=== PATIENT | female | born 1995 | race Asian ===

== ENCOUNTER 2019-02-25 04:44 | Emergency (ER) | payer OTHER ==
[~2019-02-25] VITALS: Ht 152.4 cm; Wt 49.1 kg
[2019-02-25] MEDS ORDERED: ACYC5CRE2 TP (04:55)
[2019-02-25] MEDS ORDERED: AMOX TR/POT CLAV 875 MG/125 MG TABLET PO ONE (05:15)
[2019-02-25] MEDS ORDERED: ACETAMINOPHEN 500 MG TABLET PO ONE (05:15)
[2019-02-25] MEDS ORDERED: IBUPROFEN 600 MG TABLET PO ONE (05:15)
[2019-02-25 05:18] VITALS: BP 128/89
== END 2019-02-25 05:20 | disposition home or self-care (01) ==
LOC: EMS 04:48
DX: K08.89 Other specified disorders of teeth and supporting structures (principal); Z91.041 Radiographic dye allergy status

== ENCOUNTER 2019-07-17 11:54 | Emergency (ER) | payer OTHER ==
[~2019-07-17] VITALS: Ht 153 cm; Wt 47.7 kg
[~2019-07-17 11:54] MED LIST: ACYC5CRE2 TP
[2019-07-17] MEDS ORDERED: SODIUM CHLORIDE 0.9% 1,000 ML IV ONE (12:45)
[2019-07-17 13:05] LABS: BASOPHILS % (AUTO) 0.4 % (0.0-2.0); EOSINOPHILS % (AUTO) 0.5 % (1.0-6.0); HEMATOCRIT 42.3 % (36-46); HEMOGLOBIN 14.3 g/dL (12.0-16.0); LYMPHOCYTES # (AUTO) 0.4 K/uL (1.0-4.8); LYMPHOCYTES % (AUTO) 4.9 % (22.0-44.0); MEAN CORPUSCULAR HEMOGLOBIN 27.9 pg (26.0-34.0); MEAN CORPUSCULAR HGB CONC 33.8 G/dL (31.0-37.0); MEAN CORPUSCULAR VOLUME 82 fL (80-100); MONOCYTES # (AUTO) 0.5 K/uL (0.1-1.0); MONOCYTES % (AUTO) 7.1 % (2.0-9.0); NEUTROPHILS # (AUTO) 6.4 K/uL (1.8-7.7); NEUTROPHILS % (AUTO) 87.1 % (40.0-70.0); PLATELET COUNT (AUTO) 188 K/uL (150-450); RED BLOOD CELL COUNT(AUTO) 5.13 MIL/uL (4.00-5.20); RED CELL DISTRIBUTION WIDTH 13.3 % (11.5-14.5)
[2019-07-17 13:22] LABS: ANION GAP 11 mmol/L (8-16); CALCIUM, TOTAL 8.8 mg/dL (8.8-10.5); CARBON DIOXIDE 24 mmol/L (22-29); CHLORIDE 100 mmol/L (98-107); CREATININE 0.57 mg/dL (0.60-1.30); GLOMERULAR FILTR. RATE CALC > 60 mL/min (>60); GLUCOSE,RANDOM 90 mg/dL (70-110); POTASSIUM 3.6 mmol/L (3.5-5.1); SODIUM SERUM 135 mmol/L (136-145); UREA NITROGEN, BLOOD 8 mg/dL (7-18)
[2019-07-17 13:29] LABS: ALANINE AMINOTRANSFERASE 64 U/L (12-78); ALKALINE PHOSPHATASE 90 U/L (46-116); ASPARTATE AMINOTRANSFERASE 44 U/L (15-37); BILIRUBIN,TOTAL 0.7 mg/dL (0.1-1.0); HCG,QUANTITATIVE < 1 mIU/mL (0-6); TOTAL PROTEIN, SERUM 7.9 g/dL (6.4-8.2)
[2019-07-17 15:25] LABS: APPEARANCE,URINE CLEAR (CLEAR); BILIRUBIN,URINE NEGATIVE (NEGATIVE); GLUCOSE, URINE (UA) NEGATIVE (NEGATIVE); KETONES,URINE NEGATIVE (NEGATIVE); LEUKOCYTE ESTERASE ,URINE NEGATIVE (NEGATIVE); NITRATE,URINE NEGATIVE (NEGATIVE); OCCULT BLOOD,URINE NEGATIVE (NEGATIVE); PROTEIN,URINE NEGATIVE (NEGATIVE)
[2019-07-17 15:35] VITALS: BP 108/77
[2019-07-17 15:36] LABS: BACTERIA,URINE None Seen /HPF (None Seen); RBC,URINE None Seen /HPF (0-2); SQUAMOUS EPITHELIAL CELL,UR Moderate /LPF (None Seen); WBC,URINE None Seen /HPF (0-5)
== END 2019-07-17 15:59 | disposition home or self-care (01) ==
LOC: EMS 11:55
DX: R68.83 Chills (without fever) (principal); R03.0 Elevated blood-pressure reading, without diagnosis of hypertension
CPT/HCPCS: 36415; 80053; 81001; 84702; 85025; 99285; J7030

== ENCOUNTER → 2019-08-02 | Outpatient (CLI) | payer OTHER | END | disposition home or self-care (01) | LOC: PUC 16:23 | DX: N39.0 Urinary tract infection, site not specified (principal) | CPT/HCPCS: 87086; 87491; 87591 ==

== ENCOUNTER 2021-07-24 21:06 | Inpatient (IN) | payer MEDICAID, OTHER ==
[~2021-07-24] VITALS: Ht 152.4 cm; Wt 53.1 kg
[2021-07-24 22:02] LABS: BASOPHILS % (AUTO) 0.9 % (0.0-2.0); EOSINOPHILS % (AUTO) 6.3 % (1.0-6.0); LYMPHOCYTES # (AUTO) 1.9 K/uL (1.0-4.8); LYMPHOCYTES % (AUTO) 39.4 % (22.0-44.0); MEAN CORPUSCULAR HEMOGLOBIN 28.6 pg (26.0-34.0); MEAN CORPUSCULAR VOLUME 82 fL (80-100); MONOCYTES # (AUTO) 0.5 K/uL (0.1-1.0); MONOCYTES % (AUTO) 9.5 % (2.0-9.0); NEUTROPHILS # (AUTO) 2.1 K/uL (1.8-7.7); NEUTROPHILS % (AUTO) 43.9 % (40.0-70.0); PLATELET COUNT (AUTO) 311 K/uL (150-450); RED BLOOD CELL COUNT(AUTO) 4.89 MIL/uL (4.00-5.20); RED CELL DISTRIBUTION WIDTH 13.3 % (11.5-14.5)
[2021-07-24 22:10] LABS: ANION GAP 10 mmol/L (8-16); CARBON DIOXIDE 29 mmol/L (22-29); CHLORIDE 102 mmol/L (98-107); CREATININE 0.74 mg/dL (0.60-1.30); GLUCOSE,RANDOM 98 mg/dL (70-110); POTASSIUM 3.8 mmol/L (3.5-5.1); SODIUM SERUM 141 mmol/L (136-145); UREA NITROGEN, BLOOD 13 mg/dL (7-18)
[2021-07-24 22:11] LABS: CALCIUM, TOTAL 9.5 mg/dL (8.8-10.5); GLOMERULAR FILTR. RATE CALC > 60 mL/min (>60)
[2021-07-24 22:17] LABS: ALANINE AMINOTRANSFERASE 86 U/L (12-78); ALBUMIN 4.1 g/dL (3.4-5.0); ALKALINE PHOSPHATASE 71 U/L (46-116); ASPARTATE AMINOTRANSFERASE 37 U/L (15-37); BILIRUBIN,TOTAL 0.2 mg/dL (0.1-1.0); TOTAL PROTEIN, SERUM 7.9 g/dL (6.4-8.2)
[2021-07-24 22:48] LABS: ACETAMINOPHEN < 2 mcg/mL (10-30)
[2021-07-24 22:51] LABS: SALICYLATE < 2.8 mg/dL (2.8-20.0)
[2021-07-24 23:01] LABS: AMPHET/METH SCREEN,URINE NEGATIVE (NEGATIVE); BARBITURATE SCREEN, URINE NEGATIVE (NEGATIVE); BENZODIAZEPINES SCREEN,URINE NEGATIVE (NEGATIVE); CANNABINOID SCREEN,URINE NEGATIVE (NEGATIVE); COCAINE SCREEN,URINE NEGATIVE (NEGATIVE); METHADONE SCREEN, URINE NEGATIVE (NEGATIVE); OPIATE SCREEN,URINE NEGATIVE (NEGATIVE); PHENCYCLIDINE SCREEN,URINE NEGATIVE (NEGATIVE)
[2021-07-25] MEDS ORDERED: LORazepam 2 MG TABLET PO PRN (01:30)
[2021-07-25] MEDS ORDERED: HALOPERIDOL 5 MG TABLET PO PRN (01:30)
[2021-07-25] MEDS ORDERED: ZOLPIDEM TARTRATE 10 MG TABLET PO PRN (01:30)
[2021-07-25 02:17] LABS: COVID AG,FIA SOURCE NASAL SWAB
[2021-07-25 14:04] VITALS: BP 117/80
[2021-07-25 16:10] VITALS: BP 99/70
[2021-07-26 00:39] VITALS: BP 117/68
[2021-07-26 08:05] VITALS: BP 125/81
[2021-07-26 08:17] LABS: FREE T4 (FREE THYROXINE) 0.98 ng/dL (0.76-1.46); THYROID STIMULATING HORMONE 0.62 uIU/mL (0.36-3.74)
[2021-07-26] MEDS ORDERED: GuaiFENesin/D-METHORPHAN [SUGAR-FREE] 200-20MG/10 ML SYRUP UDCUP PO PRN (12:45)
[2021-07-26] MEDS ORDERED: ALBUTEROL SULFATE HFA 90 MCG/PUFF 8 GM INHALER IH PRN (12:45)
[2021-07-26] MEDS ORDERED: IBUPROFEN 400 MG TABLET PO PRN (12:45)
[2021-07-26] MEDS ORDERED: DOCUSATE SODIUM 100 MG CAPSULE PO PRN (12:45)
[2021-07-26] MEDS ORDERED: MAG HYDROX/AL HYDROX/SIMETH ES 30 ML SUSPENSION UDCUP PO PRN (12:45)
[2021-07-26] MEDS ORDERED: ONDANSETRON HCL 4 MG TABLET PO PRN (12:45)
[2021-07-26] MEDS ORDERED: LOPERAMIDE HCL 2 MG CAPSULE PO PRN (12:45)
[2021-07-26] MEDS ORDERED: NICOTINE 14 MG/24 HOUR PATCH TD PRN (12:45)
[2021-07-26] MEDS ORDERED: MAGNESIUM HYDROXIDE SUSPENSION 30 ML UDCUP PO PRN (12:45)
[2021-07-26] MEDS ORDERED: PETROLATUM,WHITE 28 GM JELLY TP PRN (12:45)
[2021-07-26] MEDS ORDERED: CloNIDine HCL 0.1 MG TABLET PO PRN (12:45)
[2021-07-26] MEDS ORDERED: ACETAMINOPHEN 325 MG TABLET PO PRN (12:45)
[2021-07-26 16:52] VITALS: BP 104/72
[2021-07-26] MEDS ORDERED: LURASIDONE HCL 40 MG TABLET PO SCH (17:00)
[2021-07-27 00:11] VITALS: BP 112/73
[2021-07-27 07:05] LABS: HEMOGLOBIN A1C 5.4 % (3.8-5.6)
[2021-07-27 07:23] LABS: CHOL/HDL RATIO 4.5 (3.9-5.7)
[2021-07-27 08:11] VITALS: BP 118/80
[2021-07-27] MEDS ORDERED: LURA40TA2 PO (10:33)
== END 2021-07-27 12:45 | disposition home or self-care (01) | DRG 753 ==
LOC: EMS 21:09 → B2S 07-25 12:40
PROVIDERS: ADMIT Psychiatry & Neurology Child & Adolescent Psychiatry; ATTEND Psychiatry & Neurology Child & Adolescent Psychiatry
DX: F31.4 Bipolar disorder, current episode depressed, severe, without psychotic features (principal); Q25.0 Patent ductus arteriosus; T43.592A Poisoning by other antipsychotics and neuroleptics, intentional self-harm, initial encounter; F41.9 Anxiety disorder, unspecified; K21.9 Gastro-esophageal reflux disease without esophagitis; K59.00 Constipation, unspecified; Z20.822 Contact with and (suspected) exposure to COVID-19; Y92.89 Other specified places as the place of occurrence of the external cause; Z79.899 Other long term (current) drug therapy; Z91.041 Radiographic dye allergy status
CPT/HCPCS: 80053; 80061; 83036; 84439; 84443; 84703; 85025; 93005; 99285; G0480; G0481